=== PATIENT | female | born 1990 | race Caucasian/White ===

== ENCOUNTER 2017-04-23 09:00 | Observation (INO) | payer OTHER ==
--- NOTE | 2017-04-23 09:54 | PDGENHP ---
History and Physical History and Physical: 26 y.o. female presents at 23 weeks with c/o spotting since October 2016. Found out she was last week and had formal US that verified her dating. No placenta previa noted with adequate amniotic fluid noted. Denies recent sexual intercourse. Denies cramping or pain. Considering termination of . Will evaluate VS and EFM. Lab orders sent for CBC, CMP, UA, Coag panel, GC/CT and vaginitis panel. Will f/u with results.
--- NOTE | 2017-04-23 09:58 | SOAPPROG ---
SOAP Progress Note Assessment/Plan: Assessment: 26 y.o. presents as walk-in with spotting at 23 weeks. Denies recent intercourse, cramping or pain. Plan: Patient admit to OBS. EFM and VS. Lab work ordered for CBC, ABO/ Rh, coag panel. UA, vaginitis panel and GC/CT. Will f/u with results. 04/23/17 09:54 Objective: Reports experiencing vaginal spotting since October 2016. Reports just finding out that she was last week and is considering termination. Denies recent intercourse. Denies cramping or pain. - Time Spent With Patient Time Spent With Patient: 20 minutes - Pending Discharge Pending Discharge Within 24 Hours: Yes Pending Discharge Date: 04/24/17 Pending Discharge Time: 11:00 Physical Exam - Physical Exam General Appearance: WD/WN, alert, no apparent distress EENT: normal ENT inspection Neck: non-tender, normal inspection Respiratory: lungs clear, normal breath sounds Cardiac/Chest: regular rate, rhythm Abdomen: non-tender, soft Pelvic Exam: discharge, vaginal bleeding, other (pink thick vaginal discharge) Rectal: deferred Back: Normal inspection Skin: normal color, warm/dry Lymphatic: no adenopathy Extremities: normal range of motion, non-tender Neuro/Psych: alert, normal mood/affect, oriented x 3 ICD10 Worksheet Patient Problems: Problems Problem Status Onset 23 weeks gestation of Acute Vaginal bleeding during , antepartum Acute - ICD10 Problem Qualifiers (1) Vaginal bleeding during , antepartum Qualifiers: Trimester: T (2) 23 weeks gestation of
[2017-04-23 10:38] LABS: COLOR YELLOW; LEUKOCYTE ESTERASE,URINE 3+ (NEGATIVE); NITRITE,URINE NEGATIVE (NEGATIVE)
[2017-04-23 10:43] LABS: MUCUS TRACE /lpf (NONE-1+)
[2017-04-23 10:58] LABS: % IMMATURE GRANULYOCYTES 0.4 % (0.0-1.1); ABSOLUTE IMMATURE GRANULOCYTES 0.05 10^3/uL (0.00-0.10); ADD DIFF? NO; ADD MORPH? NO; ADD SCAN? NO; ATYPICAL LYMPHOCYTE FLAG 0 (0-99); FRAGMENT RBC FLAG 0 (0-99); HEMATOCRIT 36.5 % (38.0-47.0); HEMOGLOBIN 12.3 g/dL (12.6-16.3); LEFT SHIFT FLG 0 (0-99); LIPEMIA HEMOLYSIS FLAG 80 (0-99); MEAN CELL HEMOGLOBIN 30.2 pg (27.9-34.1); MEAN CELL HEMOGLOBIN CONCENTR. 33.7 g/dL (32.4-36.7); MEAN CELL VOLUME 89.7 fL (81.5-99.8); MEAN PLATELET VOLUME 10.7 fL (8.7-11.7); PLATELET CLUMPS FLAG 0 (0-99); PLATELET COUNT 262 10^3/uL (150-400); RED BLOOD CELL COUNT 4.07 10^6/uL (4.18-5.33); RED CELL DISTRIBUTION WIDTH 13.5 % (11.5-15.2)
[2017-04-23 11:14] LABS: APTT 26.4 SEC (23.0-38.0); INR 0.97 (0.83-1.16); PROTIME(PATIENT) 12.8 SEC (12.0-15.0)
--- NOTE | 2017-04-23 13:05 | SOAPPROG ---
SOAP Progress Note Assessment/Plan: Assessment: 26 y.o. presents as walk-in with spotting at 23 weeks. Denies recent intercourse, cramping or pain. Initial lab work is normal. Vaginal panel still pending. Bleeding is minimal. Patient considering termination. Plan: Discussed normal lab results. Encouraged patient to f/u in office if continues . Reviewed PTL precautions and warning signs. Questions answered. 04/23/17 09:54 04/23/17 13:02 Subjective: Reports feeling comfortable with no cramping or pain. Reports light spotting. Uncertain if going to continue . Objective: Laboratory Results 04/23/17 10:45 PT 12.8 SEC (12.0-15.0) 04/23/17 10:45 INR 0.97 (0.83-1.16) 04/23/17 10:45 - Time Spent With Patient Time Spent With Patient: 20 minutes - Pending Discharge Pending Discharge Within 24 Hours: Yes Pending Discharge Date: 04/24/17 Pending Discharge Time: 11:00 Physical Exam - Physical Exam General Appearance: WD/WN, alert, no apparent distress EENT: normal ENT inspection Neck: non-tender, full range of motion, normal inspection Respiratory: lungs clear, normal breath sounds Cardiac/Chest: regular rate, rhythm Abdomen: non-tender, soft Pelvic Exam: deferred Rectal: deferred Back: Normal inspection Skin: normal color, warm/dry Extremities: non-tender, normal inspection Neuro/Psych: alert, normal mood/affect, oriented x 3 ICD10 Worksheet Patient Problems: Problems Problem Status Onset 23 weeks gestation of Acute Vaginal bleeding during , antepartum Acute - ICD10 Problem Qualifiers (1) Vaginal bleeding during , antepartum Qualifiers: Trimester: T (2) 23 weeks gestation of
[2017-04-27 06:50] LABS: CHLAMYDIA AMPLIFICATION GENPRB NEGATIVE (NEGATIVE)
== END 2017-04-23 13:20 | disposition home or self-care (01) ==
LOC: FLD 09:00 → INTOOBSV 09:00
PROVIDERS: ADMIT Midwife; ATTEND Obstetrics & Gynecology
DX: O60.02 Preterm labor without delivery, second trimester (principal)
CPT/HCPCS: G0378 ×2